=== PATIENT | male | born 1950 | race Two or more races ===

== ENCOUNTER 2023-12-22 17:40 | Inpatient (IN) | payer OTHER ==
[~2023-12-22] VITALS: Ht 165.1 cm; Wt 62.1 kg
[2023-12-22] MEDS ORDERED: ACETAMINOPHEN ES 500 MG TABLET ONE (18:50)
[2023-12-22] MEDS ORDERED: DICL100G34 TP (18:57)
[2023-12-22] MEDS ORDERED: TAMS-12 GT (18:57)
[2023-12-22] MEDS ORDERED: CLOB15OI3 TP (18:57)
[2023-12-22] MEDS ORDERED: EMPA10TA PO (18:57)
[2023-12-22] MEDS ORDERED: SACU1TAB4 PO (18:57)
[2023-12-22] MEDS ORDERED: GLIP10TA21 PO (18:57)
[2023-12-22] MEDS ORDERED: LISI40TA13 PO (18:57)
[2023-12-22] MEDS ORDERED: ASPI-1169 PO (18:57)
[2023-12-22] MEDS ORDERED: INSU100I30 SQ (18:57)
[2023-12-22] MEDS ORDERED: AMMO385C4 TP (18:57)
[2023-12-22] MEDS ORDERED: OMEP20CA15 PO (18:57)
[2023-12-22] MEDS ORDERED: METF-442 PO (18:57)
[2023-12-22] MEDS ORDERED: FURO-145 PO (18:57)
[2023-12-22] MEDS ORDERED: ATOR20TA PO (18:57)
[2023-12-22] MEDS ORDERED: LIDO30CR47 TP (18:57)
[2023-12-22] MEDS ORDERED: APIX5TAB PO (18:57)
[2023-12-22] MEDS ORDERED: CALC60OI4 TP (18:57)
[2023-12-22] MEDS: ACETAMINOPHEN ES 500 MG TABLET PO ONE (19:00)
[2023-12-22] MEDS: IV NS 0.9% 1,000 ML BAG IV ONE (19:00)
[2023-12-22] MEDS: CEFEPIME 1 GM in IV D5W 50 ML IV ONE (19:01)
[2023-12-22 19:02] LABS: BASOPHILS % (AUTO) 0.3 % (0.0-2.0); EOSINOPHILS # (AUTO) 0.1 K/uL (0.0-0.7); EOSINOPHILS % (AUTO) 0.6 % (0.0-6.0); HEMATOCRIT 29 % (39-51); HEMOGLOBIN 9.5 g/dL (13.5-17.5); LYMPHOCYTES # (AUTO) 1.5 K/uL (0.8-4.8); LYMPHOCYTES % (AUTO) 9.8 % (20.0-44.0); MEAN CORPUSCULAR HEMOGLOBIN 31 PG (26.0-33.0); MEAN CORPUSCULAR HGB CONC 32 g/dl (31.0-36.0); MEAN CORPUSCULAR VOLUME 95 fL (80-96); MONOCYTES # (AUTO) 1.1 K/uL (0.1-1.30); MONOCYTES % (AUTO) 6.9 % (2.0-12.0); NEUTROPHILS # (AUTO) 12.7 K/uL (1.8-8.9); NEUTROPHILS % (AUTO) 82.4 % (43.0-81.0); PLATELET COUNT (AUTO) 479 K/uL (150-450); RED BLOOD CELL COUNT(AUTO) 3.07 MIL/uL (4.5-6.0); RED CELL DISTRIBUTION WIDTH 16.8 % (11.5-15.0); WHITE BLOOD COUNT (AUTO) 15.5 K/uL (4.3-11.0)
[2023-12-22 19:13] LABS: INR 1.17 (0.91-1.10); PARTIAL THROMBOPLASTIN TIME 37.4 SEC (24.3-34.3); PROTHROMBIN TIME 11.9 SECS (9.2-11.1)
[2023-12-22 19:18] LABS: LACTIC ACID 1.6 mmol/L (0.4-2.0)
[2023-12-22 19:23] LABS: CALCIUM, SERUM 8.9 mg/dL (8.5-10.1); CARBON DIOXIDE 26 mmol/L (21-32); CHLORIDE 92 mmol/L (98-107); CREATININE 1.8 mg/dL (0.6-1.3); GLUCOSE 116 mg/dL (74-106); SODIUM SERUM 126 mmol/L (136-145); UREA NITROGEN, BLOOD 32 mg/dL (7-18)
[2023-12-22] MEDS: VANCOMYCIN 1 GM in IV D5W 250 ML IV ONE (19:25)
[2023-12-22 19:27] LABS: ALANINE AMINOTRANSFERASE 25 U/L (12-78); ALBUMIN 2.2 g/dL (3.4-5.0); ALKALINE PHOSPHATASE 87 U/L (46-116); ASPARTATE AMINOTRANSFERASE 24 U/L (15-37); BILIRUBIN,DIRECT 0.1 mg/dL (0.0-0.2); BILIRUBIN,TOTAL 0.3 mg/dL (0.2-1.0); TOTAL PROTEIN, SERUM 7.9 g/dL (6.4-8.2)
[2023-12-22 19:43] LABS: APPEARANCE,URINE Clear (CLEAR); BILIRUBIN,URINE Negative (NEGATIVE); BLOOD, URINE Negative Ery/uL (NEGATIVE); COLOR,URINE YELLOW (YELLOW); KETONES,URINE Negative (NEGATIVE); LEUKOCYTE ESTERASE ,URINE Negative (NEGATIVE); NITRITE, URINE Negative (NEGATIVE); PH,URINE 5.5 (5.0-8.0); PROTEIN,URINE Negative (NEGATIVE); UGLUCOSE >=1000 mg/dL (NEGATIVE); UROBILINOGEN,URINE 0.2 EU/dL (0.2)
[2023-12-22 19:58] LABS: ADD URINE CULTURE NO; BACTERIA,URINE Few /HPF (None Seen); RBC,URINE 0-2 /HPF (0-2); SQUAMOUS EPITHELIAL CELL,UR Few /HPF (None Seen); WBC,URINE 0-2 /HPF (0-3)
[2023-12-22] MEDS ORDERED: MAG HYDROX/AL HYDROX/SIMETH 30 ML UDC PO PRN (22:30)
[2023-12-22] MEDS ORDERED: Z GUARD REMEDY 4 OZ OINT TP PRN (22:30)
[2023-12-22] MEDS ORDERED: DEXTROSE 50%-WATER 50 ML DISP.SYRIN IV PRN (22:30)
[2023-12-23 01:44] VITALS: BP 141/51; TEMP 99; O2SAT 97
[2023-12-23] MEDS: FAMOTIDINE/PF INJ 20 MG/2 ML VIAL IV ONE ×2 (02:06→02:14)
[2023-12-23 04:00] VITALS: BP 140/64; TEMP 98.8; O2SAT 98
[2023-12-23 07:52] LABS: BASOPHILS % (AUTO) 0.3 % (0.0-2.0); EOSINOPHILS # (AUTO) 0.1 K/uL (0.0-0.7); EOSINOPHILS % (AUTO) 0.9 % (0.0-6.0); HEMATOCRIT 30 % (39-51); HEMOGLOBIN 9.8 g/dL (13.5-17.5); LYMPHOCYTES # (AUTO) 1.3 K/uL (0.8-4.8); LYMPHOCYTES % (AUTO) 9.2 % (20.0-44.0); MEAN CORPUSCULAR HEMOGLOBIN 32 PG (26.0-33.0); MEAN CORPUSCULAR HGB CONC 33 g/dl (31.0-36.0); MEAN CORPUSCULAR VOLUME 96 fL (80-96); MONOCYTES % (AUTO) 7.2 % (2.0-12.0); NEUTROPHILS # (AUTO) 11.8 K/uL (1.8-8.9); NEUTROPHILS % (AUTO) 82.4 % (43.0-81.0); PLATELET COUNT (AUTO) 467 K/uL (150-450); RED CELL DISTRIBUTION WIDTH 17.2 % (11.5-15.0); WHITE BLOOD COUNT (AUTO) 14.4 K/uL (4.3-11.0)
[2023-12-23 08:00] VITALS: BP 158/60; TEMP 99.7; O2SAT 97
[2023-12-23] MEDS: BLOOD SUGAR DIAGNOSTIC 1 EACH STRIP IN SCH (08:21)
[2023-12-23 08:37] LABS: CALCIUM, SERUM 8.7 mg/dL (8.5-10.1); CARBON DIOXIDE 23 mmol/L (21-32); CHLORIDE 96 mmol/L (98-107); CREATININE 1.2 mg/dL (0.6-1.3); MAGNESIUM 1.9 mg/dL (1.8-2.4); PHOSPHORUS 4.5 mg/dL (2.5-4.9); SODIUM SERUM 132 mmol/L (136-145); UREA NITROGEN, BLOOD 23 mg/dL (7-18)
[2023-12-23 08:39] LABS: GLUCOSE 41 mg/dL (74-106)
[2023-12-23] MEDS ORDERED: POTASSIUM CHLORIDE 20 MEQ TAB.PRT.SR PO SCH (09:00)
[2023-12-23] MEDS ORDERED: FUROSEMIDE 20 MG/2 ML VIAL IV SCH (09:00)
[2023-12-23] MEDS: ASPIRIN 81 MG TAB.CHEW PO SCH (09:09)
[2023-12-23] MEDS: SACUBITRIL/VALSARTAN 1 EACH TABLET PO SCH (09:09)
[2023-12-23] MEDS: PANTOPRAZOLE 40 MG VIAL IV SCH (09:09)
[2023-12-23] MEDS: DICLOFENAC TOPICAL 100 GM TUBE TP SCH (09:09)
[2023-12-23] MEDS: CLOBETASOL 0.05% OINT 30 GM TUBE TP SCH (09:10)
[2023-12-23] MEDS: APIXABAN 5 MG TABLET PO SCH (09:10)
[2023-12-23] MEDS: FUROSEMIDE 40 MG/4 ML VIAL IV SCH (09:13)
[2023-12-23] MEDS: CEFEPIME 1 GM in IV D5W 50 ML IV SCH (11:53)
[2023-12-23] MEDS: INSULIN REGULAR, HUMAN 100 UNIT/ML 3 ML VIAL SQ PRN (11:54)
[2023-12-23 12:00] VITALS: BP 134/55; TEMP 98.8; O2SAT 96
[2023-12-23] MEDS: ONDANSETRON HCL/PF 4 MG/2 ML VIAL IVP PRN (12:17)
[2023-12-23 16:00] VITALS: BP 131/56; TEMP 99.9; O2SAT 95
[2023-12-23] MEDS: ACETAMINOPHEN 325 MG TABLET PO PRN (16:31)
[2023-12-23] MEDS ORDERED: CEFEPIME 1 GM in IV D5W 50 ML IV SCH (18:00)
[2023-12-23] MEDS: MAGNESIUM HYDROXIDE 30 ML UDC PO PRN (18:11)
[2023-12-23 20:00] VITALS: BP 137/52; TEMP 99.1; O2SAT 94
[2023-12-23] MEDS: VANCOMYCIN 1 GM in IV D5W 250ml IV SCH (20:09)
[2023-12-23] MEDS: TAMSULOSIN 0.4 MG CAP.SR.24H GT SCH (21:38)
[2023-12-24] VITALS (7 sets, daily range): BP systolic 91–155; BP diastolic 45–135; TEMP 98–99.1; O2SAT 96–100
[2023-12-24 08:11] LABS: BASOPHILS % (AUTO) 0.2 % (0.0-2.0); EOSINOPHILS # (AUTO) 0.2 K/uL (0.0-0.7); EOSINOPHILS % (AUTO) 1.2 % (0.0-6.0); HEMATOCRIT 29 % (39-51); HEMOGLOBIN 9.6 g/dL (13.5-17.5); LYMPHOCYTES # (AUTO) 1.5 K/uL (0.8-4.8); LYMPHOCYTES % (AUTO) 11.5 % (20.0-44.0); MEAN CORPUSCULAR HEMOGLOBIN 31 PG (26.0-33.0); MEAN CORPUSCULAR HGB CONC 33 g/dl (31.0-36.0); MEAN CORPUSCULAR VOLUME 94 fL (80-96); MONOCYTES % (AUTO) 7.9 % (2.0-12.0); NEUTROPHILS # (AUTO) 10.3 K/uL (1.8-8.9); NEUTROPHILS % (AUTO) 79.2 % (43.0-81.0); PLATELET COUNT (AUTO) 537 K/uL (150-450); RED BLOOD CELL COUNT(AUTO) 3.09 MIL/uL (4.5-6.0); RED CELL DISTRIBUTION WIDTH 17.1 % (11.5-15.0); WHITE BLOOD COUNT (AUTO) 12.9 K/uL (4.3-11.0)
[2023-12-24] MEDS: PANTOPRAZOLE 40 MG TABLET.DR PO SCH (08:23)
[2023-12-24] MEDS: JARDIANCE 10 MG PO SCH (08:23)
[2023-12-24 09:10] LABS: CREATINE KINASE, TOTAL 86 U/L (39-308)
[2023-12-24 09:15] LABS: ALANINE AMINOTRANSFERASE 83 U/L (12-78); ALBUMIN 1.8 g/dL (3.4-5.0); ALKALINE PHOSPHATASE 108 U/L (46-116); ASPARTATE AMINOTRANSFERASE 76 U/L (15-37); BILIRUBIN,TOTAL 0.5 mg/dL (0.2-1.0); CALCIUM, SERUM 8.7 mg/dL (8.5-10.1); CARBON DIOXIDE 28 mmol/L (21-32); CHLORIDE 92 mmol/L (98-107); CREATININE 1.3 mg/dL (0.6-1.3); GLUCOSE 116 mg/dL (74-106); MAGNESIUM 1.8 mg/dL (1.8-2.4); POTASSIUM 3.8 mmol/L (3.5-5.1); SODIUM SERUM 129 mmol/L (136-145); TOTAL PROTEIN, SERUM 7.8 g/dL (6.4-8.2); UREA NITROGEN, BLOOD 20 mg/dL (7-18)
[2023-12-24] MEDS ORDERED: LACTULOSE 10 G/15 ML UDC (PYXIS) PO PRN (13:30)
[2023-12-24] MEDS: POLYETHYLENE GLYCOL 3350 17 GM POWD.PACK PO SCH (13:59)
[2023-12-24] MEDS: VANCOMYCIN HCL 1.25 GM in IV D5W 250 ML IV SCH (17:39)
[2023-12-24] MEDS: BISACODYL (5 MG) 5 MG TABLET.DR PO SCH (21:21)
[2023-12-25 04:00] VITALS: BP 91/62; TEMP 98.5; O2SAT 97
[2023-12-25 06:45] LABS: BASOPHILS % (AUTO) 0.3 % (0.0-2.0); EOSINOPHILS % (AUTO) 0.2 % (0.0-6.0); HEMATOCRIT 30 % (39-51); LYMPHOCYTES # (AUTO) 1.2 K/uL (0.8-4.8); LYMPHOCYTES % (AUTO) 8.5 % (20.0-44.0); MEAN CORPUSCULAR HEMOGLOBIN 31 PG (26.0-33.0); MEAN CORPUSCULAR HGB CONC 33 g/dl (31.0-36.0); MEAN CORPUSCULAR VOLUME 94 fL (80-96); MONOCYTES # (AUTO) 1.1 K/uL (0.1-1.30); MONOCYTES % (AUTO) 7.4 % (2.0-12.0); NEUTROPHILS # (AUTO) 12.3 K/uL (1.8-8.9); NEUTROPHILS % (AUTO) 83.6 % (43.0-81.0); PLATELET COUNT (AUTO) 553 K/uL (150-450); RED CELL DISTRIBUTION WIDTH 16.3 % (11.5-15.0); WHITE BLOOD COUNT (AUTO) 14.7 K/uL (4.3-11.0)
[2023-12-25 06:56] LABS: CALCIUM, SERUM 8.6 mg/dL (8.5-10.1); CARBON DIOXIDE 28 mmol/L (21-32); CHLORIDE 87 mmol/L (98-107); CREATININE 1.2 mg/dL (0.6-1.3); GLUCOSE 183 mg/dL (74-106); POTASSIUM 4.3 mmol/L (3.5-5.1); SODIUM SERUM 123 mmol/L (136-145); UREA NITROGEN, BLOOD 19 mg/dL (7-18)
[2023-12-25 08:00] VITALS: BP 98/68; TEMP 98.2; O2SAT 97
[2023-12-25 12:00] VITALS: BP 98/68; TEMP 98.2; O2SAT 97
[2023-12-25] MEDS: NA PHOS,M-B/NA PHOS,DI-BA 1 EA ENEMA RC ONE (14:42)
[2023-12-25 16:00] VITALS: BP 124/56; TEMP 98.2; O2SAT 99
[2023-12-25] MEDS: BACLOFEN (10 MG) 10 MG TABLET PO SCH (16:10)
[2023-12-25] MEDS: TIMOLOL 0.5% SOLN OPHTH 5 ML BOTTLE EACHEYE SCH (21:04)
[2023-12-25] MEDS: LATANOPROST EYE DROP 0.005% 2.5 ML BOTTLE EACHEYE SCH (21:05)
[2023-12-25 22:00] VITALS: BP 117/54; TEMP 98.7; O2SAT 99
[2023-12-26 04:00] VITALS: BP 136/60; TEMP 98.2; O2SAT 99
[2023-12-26 05:08] LABS: PTH, INTACT 24 pg/mL (15-65)
[2023-12-26 07:11] LABS: CALCIUM, SERUM 8.8 mg/dL (8.5-10.1); CARBON DIOXIDE 26 mmol/L (21-32); CHLORIDE 90 mmol/L (98-107); CREATININE 1.2 mg/dL (0.6-1.3); GLUCOSE 167 mg/dL (74-106); POTASSIUM 4.4 mmol/L (3.5-5.1); SODIUM SERUM 124 mmol/L (136-145); UREA NITROGEN, BLOOD 27 mg/dL (7-18)
[2023-12-26 08:00] VITALS: BP 120/56; TEMP 98.4; O2SAT 100
[2023-12-26] MEDS: MULTIVITAMINS,THERAGRAN 1 UDTAB TABLET PO SCH (09:16)
[2023-12-26 09:27] LABS: BASOPHILS % (AUTO) 0.3 % (0.0-2.0); EOSINOPHILS # (AUTO) 0.2 K/uL (0.0-0.7); EOSINOPHILS % (AUTO) 1.9 % (0.0-6.0); HEMATOCRIT 29 % (39-51); HEMOGLOBIN 9.9 g/dL (13.5-17.5); LYMPHOCYTES # (AUTO) 1.1 K/uL (0.8-4.8); LYMPHOCYTES % (AUTO) 10.6 % (20.0-44.0); MEAN CORPUSCULAR HEMOGLOBIN 32 PG (26.0-33.0); MEAN CORPUSCULAR HGB CONC 34 g/dl (31.0-36.0); MEAN CORPUSCULAR VOLUME 93 fL (80-96); MONOCYTES # (AUTO) 0.8 K/uL (0.1-1.30); NEUTROPHILS # (AUTO) 8.3 K/uL (1.8-8.9); NEUTROPHILS % (AUTO) 79.2 % (43.0-81.0); PLATELET COUNT (AUTO) 529 K/uL (150-450); RED CELL DISTRIBUTION WIDTH 16.4 % (11.5-15.0); WHITE BLOOD COUNT (AUTO) 10.4 K/uL (4.3-11.0)
[2023-12-26 10:10] LABS: *SPE A/G RATIO 0.5 (0.7-1.7); *SPE ALBUMIN 2.2 g/dL (2.9-4.4); *SPE ALPHA-1-GLOBULIN 0.5 g/dL (0.0-0.4); *SPE ALPHA-2-GLOBULIN 1.3 g/dL (0.4-1.0); *SPE GLOBULIN, TOTAL 4.7 g/dL (2.2-3.9); *SPE M-SPIKE Not Observed g/dL (Not Observed); *SPE PROTEIN TOTAL 6.9 g/dL (6.0-8.5); *SPEGAMMA GLOBULIN 1.8 g/dL (0.4-1.8)
[2023-12-26] MEDS: FUROSEMIDE 20 MG/2 ML VIAL IV SCH (13:21)
[2023-12-26 16:29] VITALS: BP 90/62; TEMP 98.2; O2SAT 98
[2023-12-26 17:00] VITALS: BP 131/55
[2023-12-26 18:00] VITALS: BP 90/62; TEMP 98.2; O2SAT 98
[2023-12-26 20:00] VITALS: BP 125/52; TEMP 98.4; O2SAT 99
[2023-12-27 04:00] VITALS: BP 123/50; TEMP 98.6; O2SAT 99
[2023-12-27 06:58] LABS: BASOPHILS % (AUTO) 0.6 % (0.0-2.0); EOSINOPHILS # (AUTO) 0.3 K/uL (0.0-0.7); EOSINOPHILS % (AUTO) 3.8 % (0.0-6.0); HEMATOCRIT 27 % (39-51); HEMOGLOBIN 9.1 g/dL (13.5-17.5); LYMPHOCYTES # (AUTO) 1.4 K/uL (0.8-4.8); LYMPHOCYTES % (AUTO) 16.7 % (20.0-44.0); MEAN CORPUSCULAR HEMOGLOBIN 32 PG (26.0-33.0); MEAN CORPUSCULAR HGB CONC 34 g/dl (31.0-36.0); MEAN CORPUSCULAR VOLUME 94 fL (80-96); MONOCYTES # (AUTO) 0.9 K/uL (0.1-1.30); NEUTROPHILS # (AUTO) 5.9 K/uL (1.8-8.9); NEUTROPHILS % (AUTO) 68.9 % (43.0-81.0); PLATELET COUNT (AUTO) 527 K/uL (150-450); RED BLOOD CELL COUNT(AUTO) 2.84 MIL/uL (4.5-6.0); RED CELL DISTRIBUTION WIDTH 16.6 % (11.5-15.0); WHITE BLOOD COUNT (AUTO) 8.6 K/uL (4.3-11.0)
[2023-12-27 07:22] LABS: ALANINE AMINOTRANSFERASE 67 U/L (12-78); ALBUMIN 1.6 g/dL (3.4-5.0); ALKALINE PHOSPHATASE 91 U/L (46-116); ASPARTATE AMINOTRANSFERASE 30 U/L (15-37); BILIRUBIN,TOTAL 0.5 mg/dL (0.2-1.0); CALCIUM, SERUM 8.7 mg/dL (8.5-10.1); CARBON DIOXIDE 27 mmol/L (21-32); CHLORIDE 92 mmol/L (98-107); CREATININE 1.2 mg/dL (0.6-1.3); GLUCOSE 191 mg/dL (74-106); MAGNESIUM 2.1 mg/dL (1.8-2.4); PHOSPHORUS 3.8 mg/dL (2.5-4.9); POTASSIUM 4.2 mmol/L (3.5-5.1); SODIUM SERUM 127 mmol/L (136-145); TOTAL PROTEIN, SERUM 7.4 g/dL (6.4-8.2); UREA NITROGEN, BLOOD 32 mg/dL (7-18)
[2023-12-27 07:25] VITALS: O2SAT 99
[2023-12-27 12:00] VITALS: BP 128/56; TEMP 97.7; O2SAT 100
[2023-12-27 20:00] VITALS: BP 127/71; TEMP 98.2; O2SAT 100
[2023-12-27 20:05] VITALS: O2SAT 98
[2023-12-27] MEDS: CEFTRIAXONE 2 G in IV D5W 100 ML IV SCH (21:42)
[2023-12-28] VITALS (39 sets, daily range): BP systolic 81–139; BP diastolic 46–71; TEMP 97.3–98.4; O2SAT 96–100
[2023-12-28 06:43] LABS: BASOPHILS # (AUTO) 0.1 K/uL (0.0-0.2); BASOPHILS % (AUTO) 0.9 % (0.0-2.0); EOSINOPHILS # (AUTO) 0.4 K/uL (0.0-0.7); EOSINOPHILS % (AUTO) 4.7 % (0.0-6.0); HEMATOCRIT 25 % (39-51); HEMOGLOBIN 8.4 g/dL (13.5-17.5); LYMPHOCYTES # (AUTO) 1.7 K/uL (0.8-4.8); LYMPHOCYTES % (AUTO) 21.3 % (20.0-44.0); MEAN CORPUSCULAR HEMOGLOBIN 32 PG (26.0-33.0); MEAN CORPUSCULAR HGB CONC 34 g/dl (31.0-36.0); MEAN CORPUSCULAR VOLUME 95 fL (80-96); MONOCYTES # (AUTO) 0.7 K/uL (0.1-1.30); MONOCYTES % (AUTO) 9.7 % (2.0-12.0); NEUTROPHILS # (AUTO) 4.9 K/uL (1.8-8.9); NEUTROPHILS % (AUTO) 63.4 % (43.0-81.0); PLATELET COUNT (AUTO) 554 K/uL (150-450); RED BLOOD CELL COUNT(AUTO) 2.62 MIL/uL (4.5-6.0); RED CELL DISTRIBUTION WIDTH 16.5 % (11.5-15.0); WHITE BLOOD COUNT (AUTO) 7.7 K/uL (4.3-11.0)
[2023-12-28 07:08] LABS: ALANINE AMINOTRANSFERASE 50 U/L (12-78); ALBUMIN 1.6 g/dL (3.4-5.0); ALKALINE PHOSPHATASE 91 U/L (46-116); ASPARTATE AMINOTRANSFERASE 22 U/L (15-37); BILIRUBIN,TOTAL 0.3 mg/dL (0.2-1.0); CALCIUM, SERUM 8.5 mg/dL (8.5-10.1); CARBON DIOXIDE 28 mmol/L (21-32); CHLORIDE 93 mmol/L (98-107); CREATININE 1.3 mg/dL (0.6-1.3); GLUCOSE 205 mg/dL (74-106); MAGNESIUM 2.4 mg/dL (1.8-2.4); PHOSPHORUS 4.2 mg/dL (2.5-4.9); POTASSIUM 4.7 mmol/L (3.5-5.1); SODIUM SERUM 128 mmol/L (136-145); TOTAL PROTEIN, SERUM 7.3 g/dL (6.4-8.2); UREA NITROGEN, BLOOD 34 mg/dL (7-18)
[2023-12-28] MEDS ORDERED: ANESTHESIA TRAY IN PYXIS 1 EA TRAY MC ONE (12:27)
[2023-12-29 04:00] VITALS: BP 139/50; TEMP 97.3; O2SAT 100
[2023-12-29 10:00] VITALS: BP 132/60; O2SAT 95
[2023-12-29 11:29] LABS: BASOPHILS # (AUTO) 0.1 K/uL (0.0-0.2); BASOPHILS % (AUTO) 1.3 % (0.0-2.0); EOSINOPHILS # (AUTO) 0.3 K/uL (0.0-0.7); EOSINOPHILS % (AUTO) 5.4 % (0.0-6.0); HEMATOCRIT 29 % (39-51); HEMOGLOBIN 9.7 g/dL (13.5-17.5); LYMPHOCYTES % (AUTO) 18.2 % (20.0-44.0); MEAN CORPUSCULAR HEMOGLOBIN 31 PG (26.0-33.0); MEAN CORPUSCULAR HGB CONC 33 g/dl (31.0-36.0); MEAN CORPUSCULAR VOLUME 94 fL (80-96); MONOCYTES # (AUTO) 0.4 K/uL (0.1-1.30); MONOCYTES % (AUTO) 7.3 % (2.0-12.0); NEUTROPHILS # (AUTO) 3.7 K/uL (1.8-8.9); NEUTROPHILS % (AUTO) 67.8 % (43.0-81.0); PLATELET COUNT (AUTO) 564 K/uL (150-450); RED BLOOD CELL COUNT(AUTO) 3.11 MIL/uL (4.5-6.0); RED CELL DISTRIBUTION WIDTH 16.6 % (11.5-15.0); WHITE BLOOD COUNT (AUTO) 5.4 K/uL (4.3-11.0)
[2023-12-29 11:43] LABS: ALANINE AMINOTRANSFERASE 41 U/L (12-78); ALBUMIN 1.7 g/dL (3.4-5.0); ALKALINE PHOSPHATASE 94 U/L (46-116); ASPARTATE AMINOTRANSFERASE 16 U/L (15-37); BILIRUBIN,TOTAL 0.3 mg/dL (0.2-1.0); CALCIUM, SERUM 8.6 mg/dL (8.5-10.1); CARBON DIOXIDE 26 mmol/L (21-32); CHLORIDE 98 mmol/L (98-107); CREATININE 1.2 mg/dL (0.6-1.3); GLUCOSE 263 mg/dL (74-106); MAGNESIUM 2.3 mg/dL (1.8-2.4); POTASSIUM 4.5 mmol/L (3.5-5.1); SODIUM SERUM 132 mmol/L (136-145); TOTAL PROTEIN, SERUM 7.2 g/dL (6.4-8.2); UREA NITROGEN, BLOOD 32 mg/dL (7-18)
[2023-12-29 12:00] VITALS: BP 105/41; TEMP 97.7; O2SAT 95
[2023-12-29 20:00] VITALS: BP 117/52; TEMP 98.9; O2SAT 99
[2023-12-30 04:00] VITALS: BP 122/45; TEMP 98.2; O2SAT 95
[2023-12-30 04:17] VITALS: O2SAT 98
[2023-12-30 06:47] LABS: BASOPHILS # (AUTO) 0.1 K/uL (0.0-0.2); EOSINOPHILS # (AUTO) 0.3 K/uL (0.0-0.7); EOSINOPHILS % (AUTO) 4.7 % (0.0-6.0); HEMATOCRIT 27 % (39-51); HEMOGLOBIN 9.4 g/dL (13.5-17.5); LYMPHOCYTES # (AUTO) 1.5 K/uL (0.8-4.8); LYMPHOCYTES % (AUTO) 20.8 % (20.0-44.0); MEAN CORPUSCULAR HEMOGLOBIN 33 PG (26.0-33.0); MEAN CORPUSCULAR HGB CONC 35 g/dl (31.0-36.0); MEAN CORPUSCULAR VOLUME 95 fL (80-96); MONOCYTES # (AUTO) 0.4 K/uL (0.1-1.30); MONOCYTES % (AUTO) 5.9 % (2.0-12.0); NEUTROPHILS # (AUTO) 4.9 K/uL (1.8-8.9); NEUTROPHILS % (AUTO) 67.6 % (43.0-81.0); PLATELET COUNT (AUTO) 582 K/uL (150-450); RED BLOOD CELL COUNT(AUTO) 2.89 MIL/uL (4.5-6.0); RED CELL DISTRIBUTION WIDTH 16.7 % (11.5-15.0); WHITE BLOOD COUNT (AUTO) 7.2 K/uL (4.3-11.0)
[2023-12-30 07:13] LABS: ALANINE AMINOTRANSFERASE 31 U/L (12-78); ALBUMIN 1.8 g/dL (3.4-5.0); ALKALINE PHOSPHATASE 89 U/L (46-116); ASPARTATE AMINOTRANSFERASE 17 U/L (15-37); BILIRUBIN,TOTAL 0.2 mg/dL (0.2-1.0); CALCIUM, SERUM 8.4 mg/dL (8.5-10.1); CARBON DIOXIDE 28 mmol/L (21-32); CHLORIDE 99 mmol/L (98-107); CREATININE 1.3 mg/dL (0.6-1.3); GLUCOSE 244 mg/dL (74-106); MAGNESIUM 2.2 mg/dL (1.8-2.4); PHOSPHORUS 4.3 mg/dL (2.5-4.9); POTASSIUM 5.1 mmol/L (3.5-5.1); SODIUM SERUM 133 mmol/L (136-145); TOTAL PROTEIN, SERUM 7.4 g/dL (6.4-8.2); UREA NITROGEN, BLOOD 36 mg/dL (7-18)
[2023-12-30 15:02] VITALS: O2SAT 99
[2023-12-30 16:00] VITALS: BP 119/58; TEMP 98.1; O2SAT 99
[2023-12-30] MEDS ORDERED: PHENYLEPHRINE/SHK LV/MO/PET,WH 30 GM TUBE RC PRN (20:30)
[2023-12-30] MEDS ORDERED: PHENYLEPHRINE/SHK LV/MO/PET,WH 30 GM TUBE RC ONE (21:57)
[2023-12-30] MEDS: PHENYLEPHRINE/SHK LV/MO/PET,WH 30 GM TUBE RC PRN (22:08)
[2023-12-31] VITALS: BP 124/62; TEMP 98.2; O2SAT 99
[2023-12-31 06:53] LABS: BASOPHILS # (AUTO) 0.1 K/uL (0.0-0.2); BASOPHILS % (AUTO) 1.2 % (0.0-2.0); EOSINOPHILS # (AUTO) 0.3 K/uL (0.0-0.7); EOSINOPHILS % (AUTO) 4.6 % (0.0-6.0); HEMATOCRIT 28 % (39-51); HEMOGLOBIN 9.6 g/dL (13.5-17.5); LYMPHOCYTES # (AUTO) 1.5 K/uL (0.8-4.8); LYMPHOCYTES % (AUTO) 22.1 % (20.0-44.0); MEAN CORPUSCULAR HEMOGLOBIN 32 PG (26.0-33.0); MEAN CORPUSCULAR HGB CONC 34 g/dl (31.0-36.0); MEAN CORPUSCULAR VOLUME 94 fL (80-96); MONOCYTES # (AUTO) 0.5 K/uL (0.1-1.30); MONOCYTES % (AUTO) 6.9 % (2.0-12.0); NEUTROPHILS # (AUTO) 4.4 K/uL (1.8-8.9); NEUTROPHILS % (AUTO) 65.2 % (43.0-81.0); PLATELET COUNT (AUTO) 593 K/uL (150-450); RED BLOOD CELL COUNT(AUTO) 2.99 MIL/uL (4.5-6.0); RED CELL DISTRIBUTION WIDTH 16.7 % (11.5-15.0); WHITE BLOOD COUNT (AUTO) 6.7 K/uL (4.3-11.0)
[2023-12-31 07:21] LABS: ALANINE AMINOTRANSFERASE 23 U/L (12-78); ALBUMIN 1.8 g/dL (3.4-5.0); ALKALINE PHOSPHATASE 87 U/L (46-116); ASPARTATE AMINOTRANSFERASE 10 U/L (15-37); BILIRUBIN,TOTAL 0.2 mg/dL (0.2-1.0); CALCIUM, SERUM 8.4 mg/dL (8.5-10.1); CARBON DIOXIDE 29 mmol/L (21-32); CHLORIDE 100 mmol/L (98-107); CREATININE 1.3 mg/dL (0.6-1.3); GLUCOSE 203 mg/dL (74-106); MAGNESIUM 2.3 mg/dL (1.8-2.4); POTASSIUM 4.8 mmol/L (3.5-5.1); SODIUM SERUM 136 mmol/L (136-145); TOTAL PROTEIN, SERUM 7.3 g/dL (6.4-8.2); UREA NITROGEN, BLOOD 35 mg/dL (7-18)
[2023-12-31 08:00] VITALS: BP 105/41; TEMP 97.5; O2SAT 100
[2023-12-31 16:00] VITALS: BP 124/51; TEMP 97.5; O2SAT 100
[2023-12-31 20:00] VITALS: BP 132/55; TEMP 98.1; O2SAT 100
[2024-01-01 04:00] VITALS: BP 103/46; TEMP 98.2; O2SAT 100
[2024-01-01 08:00] VITALS: BP 140/53; TEMP 97.3; O2SAT 100
[2024-01-01 16:00] VITALS: BP 125/50; TEMP 97.9; O2SAT 98
[2024-01-01 20:00] VITALS: BP 124/51; TEMP 98.4; O2SAT 98
[2024-01-02 04:00] VITALS: BP 142/48; TEMP 98.1; O2SAT 99
[2024-01-02 07:12] LABS: BASOPHILS # (AUTO) 0.1 K/uL (0.0-0.2); EOSINOPHILS # (AUTO) 0.3 K/uL (0.0-0.7); EOSINOPHILS % (AUTO) 3.8 % (0.0-6.0); HEMATOCRIT 26 % (39-51); HEMOGLOBIN 8.7 g/dL (13.5-17.5); LYMPHOCYTES # (AUTO) 1.9 K/uL (0.8-4.8); LYMPHOCYTES % (AUTO) 25.9 % (20.0-44.0); MEAN CORPUSCULAR HEMOGLOBIN 33 PG (26.0-33.0); MEAN CORPUSCULAR HGB CONC 33 g/dl (31.0-36.0); MEAN CORPUSCULAR VOLUME 98 fL (80-96); MONOCYTES # (AUTO) 0.5 K/uL (0.1-1.30); MONOCYTES % (AUTO) 7.5 % (2.0-12.0); NEUTROPHILS # (AUTO) 4.5 K/uL (1.8-8.9); NEUTROPHILS % (AUTO) 61.8 % (43.0-81.0); PLATELET COUNT (AUTO) 602 K/uL (150-450); RED BLOOD CELL COUNT(AUTO) 2.69 MIL/uL (4.5-6.0); RED CELL DISTRIBUTION WIDTH 17.1 % (11.5-15.0); WHITE BLOOD COUNT (AUTO) 7.3 K/uL (4.3-11.0)
[2024-01-02 07:16] LABS: ALANINE AMINOTRANSFERASE 31 U/L (12-78); ALBUMIN 1.9 g/dL (3.4-5.0); ALKALINE PHOSPHATASE 88 U/L (46-116); ASPARTATE AMINOTRANSFERASE 16 U/L (15-37); BILIRUBIN,TOTAL 0.1 mg/dL (0.2-1.0); CALCIUM, SERUM 8.4 mg/dL (8.5-10.1); CARBON DIOXIDE 25 mmol/L (21-32); CHLORIDE 101 mmol/L (98-107); CREATININE 1.5 mg/dL (0.6-1.3); GLUCOSE 254 mg/dL (74-106); MAGNESIUM 2.4 mg/dL (1.8-2.4); POTASSIUM 4.7 mmol/L (3.5-5.1); SODIUM SERUM 135 mmol/L (136-145); TOTAL PROTEIN, SERUM 7.3 g/dL (6.4-8.2); UREA NITROGEN, BLOOD 43 mg/dL (7-18)
[2024-01-02 08:00] VITALS: BP 146/57; TEMP 97.7; O2SAT 96
[2024-01-02 12:00] VITALS: BP 132/55; TEMP 98; O2SAT 96
[2024-01-02 20:00] VITALS: BP 141/60; TEMP 98.6; O2SAT 97
[2024-01-02 20:11] VITALS: O2SAT 98
[2024-01-02] MEDS: HEPARIN SODIUM, PORCINE 5000 UNITS/1 ML VIAL SQ SCH (21:51)
[2024-01-03 04:00] VITALS: BP 141/57; TEMP 98.4; O2SAT 99
[2024-01-03 07:26] LABS: BASOPHILS # (AUTO) 0.1 K/uL (0.0-0.2); BASOPHILS % (AUTO) 0.9 % (0.0-2.0); EOSINOPHILS # (AUTO) 0.3 K/uL (0.0-0.7); EOSINOPHILS % (AUTO) 4.4 % (0.0-6.0); HEMATOCRIT 27 % (39-51); HEMOGLOBIN 8.9 g/dL (13.5-17.5); LYMPHOCYTES # (AUTO) 1.8 K/uL (0.8-4.8); MEAN CORPUSCULAR HEMOGLOBIN 32 PG (26.0-33.0); MEAN CORPUSCULAR HGB CONC 33 g/dl (31.0-36.0); MEAN CORPUSCULAR VOLUME 97 fL (80-96); MONOCYTES # (AUTO) 0.6 K/uL (0.1-1.30); MONOCYTES % (AUTO) 8.1 % (2.0-12.0); NEUTROPHILS # (AUTO) 4.9 K/uL (1.8-8.9); NEUTROPHILS % (AUTO) 63.6 % (43.0-81.0); PLATELET COUNT (AUTO) 624 K/uL (150-450); RED BLOOD CELL COUNT(AUTO) 2.75 MIL/uL (4.5-6.0); WHITE BLOOD COUNT (AUTO) 7.8 K/uL (4.3-11.0)
[2024-01-03 07:48] LABS: CALCIUM, SERUM 8.6 mg/dL (8.5-10.1); CARBON DIOXIDE 24 mmol/L (21-32); CHLORIDE 100 mmol/L (98-107); CREATININE 1.3 mg/dL (0.6-1.3); GLUCOSE 258 mg/dL (74-106); MAGNESIUM 2.4 mg/dL (1.8-2.4); PHOSPHORUS 4.2 mg/dL (2.5-4.9); POTASSIUM 4.8 mmol/L (3.5-5.1); SODIUM SERUM 133 mmol/L (136-145); UREA NITROGEN, BLOOD 39 mg/dL (7-18)
[2024-01-03] MEDS ORDERED: CEFT2VIA14 IV (11:34)
[2024-01-03 16:24] VITALS: BP 149/70; TEMP 97.9; O2SAT 99
== END 2024-01-03 17:07 | DRG 871 ==
LOC: ER 18:56 → TELE1 12-23 00:16 → MEDSG1 12-24 11:55 → ICU 12-28 12:44 → MEDSG1 12-28 15:14
PROVIDERS: ATTEND Nurse Practitioner Family
DX: A41.01 Sepsis due to Methicillin susceptible Staphylococcus aureus (principal); E43 Unspecified severe protein-calorie malnutrition; I50.23 Acute on chronic systolic (congestive) heart failure; I13.0 Hypertensive heart and chronic kidney disease with heart failure and stage 1 through stage 4 chronic kidney disease, or unspecified chronic kidney disease; N17.9 Acute kidney failure, unspecified; E87.1 Hypo-osmolality and hyponatremia; E11.22 Type 2 diabetes mellitus with diabetic chronic kidney disease; N18.9 Chronic kidney disease, unspecified; D63.8 Anemia in other chronic diseases classified elsewhere; E11.649 Type 2 diabetes mellitus with hypoglycemia without coma; E78.5 Hyperlipidemia, unspecified; E88.09 Other disorders of plasma-protein metabolism, not elsewhere classified; I25.10 Atherosclerotic heart disease of native coronary artery without angina pectoris; K59.00 Constipation, unspecified; K21.9 Gastro-esophageal reflux disease without esophagitis; Z79.84 Long term (current) use of oral hypoglycemic drugs; Z95.1 Presence of aortocoronary bypass graft; Z79.899 Other long term (current) drug therapy; Z95.810 Presence of automatic (implantable) cardiac defibrillator; N40.0 Benign prostatic hyperplasia without lower urinary tract symptoms; M89.8X9 Other specified disorders of bone, unspecified site; K64.8 Other hemorrhoids; Z79.01 Long term (current) use of anticoagulants; Z79.4 Long term (current) use of insulin; I48.91 Unspecified atrial fibrillation; Z20.822 Contact with and (suspected) exposure to COVID-19; Z96.89 Presence of other specified functional implants; Z68.22 Body mass index [BMI] 22.0-22.9, adult
CPT/HCPCS: 36415; 71045-TC; 72146-TC; 72148-TC; 76770-TC; 80048-TC; 80053-TC; 80076-TC; 80202-TC; 81001; 82550-TC; 82962-TC; 83605-TC; 83735-TC; 83970; 84100-TC; 84155; 84165; 84484-TC; 85025-TC; 85730-TC; 87040-TC; 93307-TC; 93312-TC; 94799-TC; 97110-TC; 97112-TC; 97116-TC; 97530-TC; A4223; A6403; G0378; J0692; J0696; J1644; J1815; J1940; J2405; J2470; J2704; J3370; J3490; J7030; J7040; J7050; J7060

== ENCOUNTER 2024-01-19 14:09 | Inpatient (IN) | payer MEDICARE, OTHER ==
[~2024-01-19] VITALS: Ht 165.1 cm; Wt 68.0 kg
[~2024-01-19 14:09] MED LIST: AMMO385C4 TP; APIX5TAB PO; ASPI-1169 PO; ATOR20TA PO; CALC60OI4 TP; CEFT2VIA14 IV; CLOB15OI3 TP; DICL100G34 TP; EMPA10TA PO; GLIP10TA21 PO; INSU100I30 SQ; LIDO30CR47 TP; LISI40TA13 PO; METF-442 PO; OMEP20CA15 PO; SACU1TAB4 PO; TAMS-12 PO
[2024-01-19] MEDS: MEROPENEM 1,000 MG in IV NS 0.9% 100 ML IV ONE (15:00)
[2024-01-19 15:02] LABS: BASOPHILS % (AUTO) 0.5 % (0.0-2.0); EOSINOPHILS % (AUTO) 0.3 % (0.0-6.0); HEMATOCRIT 29 % (39-51); HEMOGLOBIN 9.6 g/dL (13.5-17.5); LYMPHOCYTES # (AUTO) 1.2 K/uL (0.8-4.8); LYMPHOCYTES % (AUTO) 11.6 % (20.0-44.0); MEAN CORPUSCULAR HEMOGLOBIN 32 PG (26.0-33.0); MEAN CORPUSCULAR HGB CONC 33 g/dl (31.0-36.0); MEAN CORPUSCULAR VOLUME 96 fL (80-96); MONOCYTES # (AUTO) 0.8 K/uL (0.1-1.30); MONOCYTES % (AUTO) 7.4 % (2.0-12.0); NEUTROPHILS # (AUTO) 8.1 K/uL (1.8-8.9); NEUTROPHILS % (AUTO) 80.2 % (43.0-81.0); PLATELET COUNT (AUTO) 237 K/uL (150-450); RED BLOOD CELL COUNT(AUTO) 3.04 MIL/uL (4.5-6.0); RED CELL DISTRIBUTION WIDTH 18.8 % (11.5-15.0); WHITE BLOOD COUNT (AUTO) 10.1 K/uL (4.3-11.0)
[2024-01-19 15:19] LABS: LACTIC ACID 1.3 mmol/L (0.4-2.0)
[2024-01-19] MEDS ORDERED: POVI3780 TP (15:20)
[2024-01-19] MEDS ORDERED: FERR325T23 PO (15:20)
[2024-01-19] MEDS ORDERED: HYDR-4076 PO (15:20)
[2024-01-19] MEDS ORDERED: AMLO5TAB4 PO (15:20)
[2024-01-19] MEDS ORDERED: LATA2.5D15 EACHEYE (15:20)
[2024-01-19] MEDS ORDERED: TIMO5DRO35 EACHEYE (15:20)
[2024-01-19] MEDS ORDERED: ZINC220C6 PO (15:20)
[2024-01-19] MEDS ORDERED: GLIP5TAB13 PO (15:20)
[2024-01-19] MEDS ORDERED: INSU100V39 SQ (15:20)
[2024-01-19] MEDS ORDERED: SILV20CR13 TP (15:20)
[2024-01-19] MEDS ORDERED: ASCO-352 PO (15:20)
[2024-01-19] MEDS ORDERED: CLOT10SO TP (15:20)
[2024-01-19] MEDS ORDERED: ZINC57OI4 TP (15:20)
[2024-01-19] MEDS ORDERED: ACET-868 PO (15:20)
[2024-01-19] MEDS ORDERED: NYST30CR3 TP (15:20)
[2024-01-19] MEDS ORDERED: MULT-447 PO (15:20)
[2024-01-19 15:30] LABS: CALCIUM, SERUM 8.5 mg/dL (8.5-10.1); CARBON DIOXIDE 24 mmol/L (21-32); CHLORIDE 104 mmol/L (98-107); CREATININE 1.2 mg/dL (0.6-1.3); GLUCOSE 83 mg/dL (74-106); POTASSIUM 3.9 mmol/L (3.5-5.1); SODIUM SERUM 135 mmol/L (136-145); UREA NITROGEN, BLOOD 36 mg/dL (7-18)
[2024-01-19 15:32] LABS: APPEARANCE,URINE Clear (CLEAR); BILIRUBIN,URINE Negative (NEGATIVE); BLOOD, URINE Negative Ery/uL (NEGATIVE); COLOR,URINE YELLOW (YELLOW); KETONES,URINE Negative (NEGATIVE); LEUKOCYTE ESTERASE ,URINE Negative (NEGATIVE); NITRITE, URINE Negative (NEGATIVE); PH,URINE 5.5 (5.0-8.0); PROTEIN,URINE 100 mg/dl (NEGATIVE); UGLUCOSE 250 MG/DL mg/dL (NEGATIVE); UROBILINOGEN,URINE 0.2 EU/dL (0.2)
[2024-01-19 15:34] LABS: ALANINE AMINOTRANSFERASE 30 U/L (12-78); ALBUMIN 2.5 g/dL (3.4-5.0); ALKALINE PHOSPHATASE 74 U/L (46-116); ASPARTATE AMINOTRANSFERASE 17 U/L (15-37); BILIRUBIN,DIRECT 0.1 mg/dL (0.0-0.2); BILIRUBIN,TOTAL 0.4 mg/dL (0.2-1.0); INR 1.31 (0.91-1.10); PARTIAL THROMBOPLASTIN TIME 38.1 SEC (24.3-34.3); PROTHROMBIN TIME 13.6 SECS (9.2-11.1); TOTAL PROTEIN, SERUM 6.8 g/dL (6.4-8.2)
[2024-01-19] MEDS ORDERED: ACETAMINOPHEN ES 500 MG TABLET ONE (15:37)
[2024-01-19 15:49] LABS: ADD URINE CULTURE NO; BACTERIA,URINE Few /HPF (None Seen); RBC,URINE 0-2 /HPF (0-2); WBC,URINE 0-2 /HPF (0-3)
[2024-01-19 15:50] LABS: HYALINE CASTS, URINE Few /LPF (None Seen); MUCUS,URINE Few /LPF (None Seen); SQUAMOUS EPITHELIAL CELL,UR Few /HPF (None Seen)
[2024-01-19] MEDS: ACETAMINOPHEN ES 500 MG TABLET PO ONE (15:57)
[2024-01-19] MEDS: VANCOMYCIN 1 GM in IV D5W 250 ML IV ONE (16:00)
[2024-01-19] MEDS ORDERED: ACETAMINOPHEN 325 MG TABLET PO PRN ×2 (18:30→22:30)
[2024-01-19] MEDS ORDERED: MAG HYDROX/AL HYDROX/SIMETH 30 ML UDC PO PRN (18:30)
[2024-01-19] MEDS ORDERED: MAGNESIUM HYDROXIDE 30 ML UDC PO PRN (18:30)
[2024-01-19] MEDS ORDERED: ONDANSETRON HCL/PF 4 MG/2 ML VIAL IVP PRN (18:30)
[2024-01-19] MEDS ORDERED: ZOLPIDEM TARTRATE 5 MG TABLET PO PRN (18:30)
[2024-01-19] MEDS ORDERED: DEXTROSE 50%-WATER 50 ML DISP.SYRIN IV PRN (19:00)
[2024-01-19] MEDS: IV NS 0.9% 1,000 ML IV PRN (19:47)
[2024-01-19 20:00] VITALS: BP 93/47; TEMP 97.9; O2SAT 95
[2024-01-19] MEDS: ENOXAPARIN SODIUM 40 MG/0.4 ML DISP.SYRIN SQ SCH (21:22)
[2024-01-19] MEDS: BLOOD SUGAR DIAGNOSTIC 1 EACH STRIP IN SCH (22:09)
[2024-01-19] MEDS ORDERED: hydrALAZINE HCL 25 MG TABLET PO PRN (22:30)
[2024-01-19] MEDS: MIDODRINE HCL (5MG) 5 MG TABLET PO PRN (23:08)
[2024-01-19 23:30] VITALS: BP 85/42; O2SAT 96
[2024-01-20] VITALS (62 sets, daily range): BP systolic 73–150; BP diastolic 40–106; TEMP 98.2–98.6; O2SAT 91–100
[2024-01-20] MEDS: NOREPINEPHRINE 8 MG in IV D5W 242 ML IV PRN ×2 (01:56→09:35)
[2024-01-20] MEDS: IV NS 0.9% 1,000 ML BAG IV ONE (01:56)
[2024-01-20] MEDS: NOREPINEPHRINE 8MG/250ML RTU 250 ML IV ONE (01:57)
[2024-01-20] MEDS: MEROPENEM 1 G in IV NS 0.9% 100 ML IV SCH (02:30)
[2024-01-20] MEDS: PANTOPRAZOLE 40 MG TABLET.DR PO SCH (08:14)
[2024-01-20] MEDS: INSULIN REGULAR, HUMAN 100 UNIT/ML 3 ML VIAL SQ PRN (08:17)
[2024-01-20] MEDS: SACUBITRIL/VALSARTAN 24/26MG TABLET PO SCH (09:00)
[2024-01-20] MEDS: AMLODIPINE BESYLATE 5 MG TABLET PO SCH (09:00)
[2024-01-20] MEDS: MULTIVIT W/MINERALS 1 TAB TABLET PO SCH (09:28)
[2024-01-20] MEDS: ASCORBIC ACID 500 MG TABLET PO SCH (09:28)
[2024-01-20] MEDS: ASPIRIN 81 MG TAB.CHEW PO SCH (09:29)
[2024-01-20] MEDS: ZINC SULFATE 220 MG CAPSULE PO SCH (09:29)
[2024-01-20] MEDS: APIXABAN 5 MG TABLET PO SCH (09:29)
[2024-01-20] MEDS: FERROUS SULFATE (325 MG) 325 MG/TAB TABLET PO SCH (09:29)
[2024-01-20] MEDS: Z GUARD REMEDY 4 OZ OINT TP PRN (09:30)
[2024-01-20] MEDS: CLOBETASOL 0.05% OINT 30 GM TUBE TP SCH (09:30)
[2024-01-20] MEDS: CLOTRIMAZOLE 1% TP SCH (09:30)
[2024-01-20] MEDS: TIMOLOL 0.5% SOLN OPHTH 5 ML BOTTLE EACHEYE SCH (09:31)
[2024-01-20] MEDS: SILVER SULFADIAZINE 50 GM JAR TP SCH (09:31)
[2024-01-20] MEDS: NYSTATIN/TRIAMCIN OINT 15 GM TUBE TP SCH (09:31)
[2024-01-20] MEDS: ATORVASTATIN 10 MG TABLET PO SCH (09:34)
[2024-01-20] MEDS: DICLOFENAC TOPICAL 100 GM TUBE TP SCH (09:59)
[2024-01-20 14:27] LABS: CALCIUM, SERUM 8.2 mg/dL (8.5-10.1); CARBON DIOXIDE 20 mmol/L (21-32); CHLORIDE 103 mmol/L (98-107); CREATININE 1.3 mg/dL (0.6-1.3); GLUCOSE 164 mg/dL (74-106); MAGNESIUM 1.7 mg/dL (1.8-2.4); PHOSPHORUS 3.9 mg/dL (2.5-4.9); POTASSIUM 3.3 mmol/L (3.5-5.1); SODIUM SERUM 134 mmol/L (136-145); UREA NITROGEN, BLOOD 34 mg/dL (7-18)
[2024-01-20 15:20] LABS: BASOPHILS % (AUTO) 0.5 % (0.0-2.0); EOSINOPHILS % (AUTO) 0.7 % (0.0-6.0); HEMATOCRIT 26 % (39-51); HEMOGLOBIN 8.4 g/dL (13.5-17.5); LYMPHOCYTES % (AUTO) 13.9 % (20.0-44.0); MEAN CORPUSCULAR HEMOGLOBIN 32 PG (26.0-33.0); MEAN CORPUSCULAR HGB CONC 33 g/dl (31.0-36.0); MEAN CORPUSCULAR VOLUME 98 fL (80-96); MONOCYTES # (AUTO) 0.7 K/uL (0.1-1.30); MONOCYTES % (AUTO) 9.8 % (2.0-12.0); NEUTROPHILS # (AUTO) 5.3 K/uL (1.8-8.9); NEUTROPHILS % (AUTO) 75.1 % (43.0-81.0); PLATELET COUNT (AUTO) 196 K/uL (150-450); RED BLOOD CELL COUNT(AUTO) 2.62 MIL/uL (4.5-6.0); RED CELL DISTRIBUTION WIDTH 18.5 % (11.5-15.0)
[2024-01-20] MEDS: VANCOMYCIN HCL 1.25 GM in IV D5W 250 ML IV SCH (16:21)
[2024-01-20] MEDS: SACUBITRIL PO SCH (17:00)
[2024-01-20] MEDS: VALSARTAN PO SCH (17:00)
[2024-01-20 17:34] LABS: BAND % (MANUAL) 10 % (0.0-5.0); EOSINOPHILS % (MANUAL) 1 % (0-4); LYMPHOCYTES % (MANUAL) 21 % (16-48); NEUTROPHILS % (MANUAL) 68 (42-76); PLATELET ESTIMATE ADEQU
[2024-01-20 17:35] LABS: ANISOCYTOSIS 1+; ROULEAUX 1+
[2024-01-20] MEDS: POTASSIUM CHLORIDE 20 MEQ TAB.PRT.SR PO SCH (20:00)
[2024-01-20] MEDS: MAGNESIUM OXIDE 400 MG TABLET PO ONE (20:43)
[2024-01-20] MEDS: LATANOPROST EYE DROP 0.005% 2.5 ML BOTTLE EACHEYE SCH (21:51)
[2024-01-20] MEDS: TAMSULOSIN 0.4 MG CAP.SR.24H PO SCH (21:52)
[2024-01-20] MEDS: INSULIN GLARGINE, 100 UNIT/ML CARTRIDGE SQ SCH (22:06)
[2024-01-21] VITALS (19 sets, daily range): BP systolic 92–147; BP diastolic 36–72; TEMP 97.7–98.4; O2SAT 92–100
[2024-01-21 06:12] LABS: BASOPHILS # (AUTO) 0.1 K/uL (0.0-0.2); BASOPHILS % (AUTO) 1.1 % (0.0-2.0); EOSINOPHILS # (AUTO) 0.4 K/uL (0.0-0.7); EOSINOPHILS % (AUTO) 7.2 % (0.0-6.0); HEMATOCRIT 28 % (39-51); HEMOGLOBIN 9.5 g/dL (13.5-17.5); LYMPHOCYTES # (AUTO) 0.9 K/uL (0.8-4.8); MEAN CORPUSCULAR HEMOGLOBIN 33 PG (26.0-33.0); MEAN CORPUSCULAR HGB CONC 33 g/dl (31.0-36.0); MEAN CORPUSCULAR VOLUME 98 fL (80-96); MONOCYTES # (AUTO) 0.5 K/uL (0.1-1.30); MONOCYTES % (AUTO) 8.9 % (2.0-12.0); NEUTROPHILS # (AUTO) 3.8 K/uL (1.8-8.9); NEUTROPHILS % (AUTO) 66.8 % (43.0-81.0); PLATELET COUNT (AUTO) 190 K/uL (150-450); RED CELL DISTRIBUTION WIDTH 18.6 % (11.5-15.0); WHITE BLOOD COUNT (AUTO) 5.6 K/uL (4.3-11.0)
[2024-01-21 06:21] LABS: CALCIUM, SERUM 8.2 mg/dL (8.5-10.1); CARBON DIOXIDE 17 mmol/L (21-32); CHLORIDE 108 mmol/L (98-107); CREATININE 1.3 mg/dL (0.6-1.3); GLUCOSE 115 mg/dL (74-106); MAGNESIUM 1.8 mg/dL (1.8-2.4); PHOSPHORUS 3.4 mg/dL (2.5-4.9); POTASSIUM 3.5 mmol/L (3.5-5.1); SODIUM SERUM 138 mmol/L (136-145); UREA NITROGEN, BLOOD 30 mg/dL (7-18)
[2024-01-22] VITALS: BP 121/56; TEMP 97.9; O2SAT 98
[2024-01-22 04:00] VITALS: BP 131/58; TEMP 97.7; O2SAT 98
[2024-01-22 07:20] LABS: BASOPHILS % (AUTO) 0.8 % (0.0-2.0); EOSINOPHILS # (AUTO) 0.4 K/uL (0.0-0.7); EOSINOPHILS % (AUTO) 10.3 % (0.0-6.0); HEMATOCRIT 26 % (39-51); HEMOGLOBIN 8.5 g/dL (13.5-17.5); LYMPHOCYTES % (AUTO) 23.3 % (20.0-44.0); MEAN CORPUSCULAR HEMOGLOBIN 32 PG (26.0-33.0); MEAN CORPUSCULAR HGB CONC 33 g/dl (31.0-36.0); MEAN CORPUSCULAR VOLUME 99 fL (80-96); MONOCYTES # (AUTO) 0.4 K/uL (0.1-1.30); MONOCYTES % (AUTO) 9.1 % (2.0-12.0); NEUTROPHILS # (AUTO) 2.4 K/uL (1.8-8.9); NEUTROPHILS % (AUTO) 56.5 % (43.0-81.0); PLATELET COUNT (AUTO) 204 K/uL (150-450); RED BLOOD CELL COUNT(AUTO) 2.65 MIL/uL (4.5-6.0); RED CELL DISTRIBUTION WIDTH 18.4 % (11.5-15.0); WHITE BLOOD COUNT (AUTO) 4.2 K/uL (4.3-11.0)
[2024-01-22 07:41] LABS: CALCIUM, SERUM 8.8 mg/dL (8.5-10.1); CARBON DIOXIDE 19 mmol/L (21-32); CHLORIDE 110 mmol/L (98-107); GLUCOSE 148 mg/dL (74-106); MAGNESIUM 1.8 mg/dL (1.8-2.4); PHOSPHORUS 2.8 mg/dL (2.5-4.9); POTASSIUM 3.5 mmol/L (3.5-5.1); SODIUM SERUM 137 mmol/L (136-145); UREA NITROGEN, BLOOD 20 mg/dL (7-18)
[2024-01-22 08:00] VITALS: BP 128/58; TEMP 97.8; O2SAT 98
[2024-01-22 12:00] VITALS: BP 115/78; TEMP 97.9; O2SAT 98
[2024-01-22 16:00] VITALS: BP 119/78; TEMP 97.9; O2SAT 98
[2024-01-22 20:00] VITALS: BP 159/63; TEMP 98.1; O2SAT 98
[2024-01-23] VITALS: BP 118/78; TEMP 98.5; O2SAT 98
[2024-01-23 04:00] VITALS: BP 156/65; TEMP 98.2; O2SAT 98
[2024-01-23 07:18] LABS: BASOPHILS % (AUTO) 0.8 % (0.0-2.0); EOSINOPHILS # (AUTO) 0.4 K/uL (0.0-0.7); EOSINOPHILS % (AUTO) 9.4 % (0.0-6.0); HEMATOCRIT 27 % (39-51); HEMOGLOBIN 8.9 g/dL (13.5-17.5); LYMPHOCYTES # (AUTO) 1.2 K/uL (0.8-4.8); LYMPHOCYTES % (AUTO) 30.4 % (20.0-44.0); MEAN CORPUSCULAR HEMOGLOBIN 32 PG (26.0-33.0); MEAN CORPUSCULAR HGB CONC 33 g/dl (31.0-36.0); MEAN CORPUSCULAR VOLUME 97 fL (80-96); MONOCYTES # (AUTO) 0.4 K/uL (0.1-1.30); MONOCYTES % (AUTO) 10.3 % (2.0-12.0); NEUTROPHILS % (AUTO) 49.1 % (43.0-81.0); PLATELET COUNT (AUTO) 223 K/uL (150-450); RED BLOOD CELL COUNT(AUTO) 2.74 MIL/uL (4.5-6.0); RED CELL DISTRIBUTION WIDTH 18.3 % (11.5-15.0); WHITE BLOOD COUNT (AUTO) 4.1 K/uL (4.3-11.0)
[2024-01-23 07:43] LABS: CALCIUM, SERUM 8.3 mg/dL (8.5-10.1); CARBON DIOXIDE 21 mmol/L (21-32); CHLORIDE 110 mmol/L (98-107); CREATININE 0.9 mg/dL (0.6-1.3); GLUCOSE 149 mg/dL (74-106); MAGNESIUM 1.6 mg/dL (1.8-2.4); PHOSPHORUS 2.7 mg/dL (2.5-4.9); POTASSIUM 3.6 mmol/L (3.5-5.1); SODIUM SERUM 138 mmol/L (136-145); UREA NITROGEN, BLOOD 14 mg/dL (7-18)
[2024-01-23 08:00] VITALS: BP 150/64; TEMP 98.5; O2SAT 99
[2024-01-23 12:00] VITALS: BP 150/64; TEMP 98.5; O2SAT 91
[2024-01-23] MEDS: MAGNESIUM OXIDE 400 MG TABLET PO ONE (12:12)
== END 2024-01-23 18:18 | DRG 871 ==
LOC: ER 14:11 → TELE 16:57 → ICU 01-20 01:48 → TELE1 01-21 17:36
PROVIDERS: ADMIT Student in an Organized Health Care Education/Training Program; ATTEND Nurse Practitioner Acute Care
PROC: 02HV33Z Insertion of Infusion Device into Superior Vena Cava, Percutaneous Approach (ICD-10-PCS; principal; 2024-01-23)
PROC: B548ZZA Ultrasonography of Superior Vena Cava, Guidance (ICD-10-PCS; 2024-01-23)
DX: A41.9 Sepsis, unspecified organism (principal); R65.21 Severe sepsis with septic shock; E44.0 Moderate protein-calorie malnutrition; I13.0 Hypertensive heart and chronic kidney disease with heart failure and stage 1 through stage 4 chronic kidney disease, or unspecified chronic kidney disease; I50.22 Chronic systolic (congestive) heart failure; N17.9 Acute kidney failure, unspecified; E87.1 Hypo-osmolality and hyponatremia; N18.9 Chronic kidney disease, unspecified; E11.22 Type 2 diabetes mellitus with diabetic chronic kidney disease; E78.5 Hyperlipidemia, unspecified; Z95.1 Presence of aortocoronary bypass graft; Z95.810 Presence of automatic (implantable) cardiac defibrillator; K21.9 Gastro-esophageal reflux disease without esophagitis; I48.91 Unspecified atrial fibrillation; I25.10 Atherosclerotic heart disease of native coronary artery without angina pectoris; N40.0 Benign prostatic hyperplasia without lower urinary tract symptoms; Z79.01 Long term (current) use of anticoagulants; K62.89 Other specified diseases of anus and rectum; Z88.0 Allergy status to penicillin; Z87.891 Personal history of nicotine dependence; Z79.84 Long term (current) use of oral hypoglycemic drugs; Z79.4 Long term (current) use of insulin; Z68.25 Body mass index [BMI] 25.0-25.9, adult; Z20.822 Contact with and (suspected) exposure to COVID-19; Z96.89 Presence of other specified functional implants
CPT/HCPCS: 36415; 36569; 71045-TC; 74018; 80048-TC; 80076-TC; 80202-TC; 81001; 82962-TC; 83605-TC; 83735-TC; 83880; 84100-TC; 84484-TC; 85025-TC; 85730-TC; 87040-TC; 87086-TC; 97112-TC; 97116-TC; 97530-TC; A4223; G0378; J1650; J1815; J2185; J3370; J7030; J7060